=== PATIENT | female | born 1960 | race Caucasian/White ===

== ENCOUNTER 2018-10-03 10:53 | Day surgery (SDC) | payer BC ==
[~2018-10-03 10:53] MED LIST: PROPOFOL 40 ML IV ONE
[2018-10-03] MEDS ORDERED: GADOBUTROL 7.5 MMOL/7.5 ML VIAL IV ONE (11:45)
[2018-10-03] MEDS ORDERED: GADOPENTETATE DIMEGLUMINE IV ONE (12:15)
[2018-10-03] MEDS ORDERED: PROPOFOL 20 ML IV ONE (12:29)
[2018-10-03 12:52] VITALS: BP 146/58
--- NOTE | 2018-10-03 16:15 | RAD ---
MRI of the Brain without and with Contrast 10/03/2018 Clinical History: Dizziness. Andrenalmedullary hyperfunction. Headaches. Technique: Unenhanced T1-weighted sagittal and axial and FLAIR, T2-weighted, gradient echo and diffusion-weighted axial images of the brain were obtained. After the intravenous administration of 7.5 cc of Gadavist, enhanced T1-weighted axial, sagittal and coronal images of the brain were obtained. Findings: Comparison is made to the patient's CT scan of the head dated 09/13/2018. Some of the images from the study are degraded by patient motion. The ventricles and sulci are within normal limits in size and configuration. Patchy and several small scattered areas of abnormally increased signal intensity are seen within the periventricular and subcortical white matter of both cerebral hemispheres on the FLAIR and T2-weighted images consistent with areas of minimal small vessel ischemic disease. No acute parenchymal abnormality is seen. No abnormal area of contrast enhancement is noted. No extra-axial fluid collection is seen. There is no MRI evidence of acute ischemia/infarction. The pituitary gland is within normal limits. Mild mucosal thickening is seen scattered throughout the paranasal sinuses. Normal flow voids are seen within the major vascular structures surrounding the brain parenchyma. Impression: No acute parenchymal abnormality is seen. Electronically signed by: Дмитрий Martinez MD (10/03/2018 4:11 PM) [id number]
== END 2018-10-03 13:03 | disposition home or self-care (01) ==
LOC: SURG 10:53
PROVIDERS: ATTEND Anesthesiology
DX: I67.841 Reversible cerebrovascular vasoconstriction syndrome (principal); R51 Headache; R42 Dizziness and giddiness; E27.5 Adrenomedullary hyperfunction; E07.9 Disorder of thyroid, unspecified; F41.9 Anxiety disorder, unspecified; Z86.73 Personal history of transient ischemic attack (TIA), and cerebral infarction without residual deficits
CPT/HCPCS: 70553; A9579; J2704